=== PATIENT | male | born 1970 | race Hispanic/Latino ===

== ENCOUNTER 2021-08-02 20:34 | Emergency (ER) | payer BC ==
[2021-08-02] MEDS ORDERED: Boostrix 0.5 ML (Tdap) VIAL ONE (21:05)
== END 2021-08-02 21:26 | disposition home or self-care (01) ==
LOC: NAV ERS 20:34
DX: S61.412A Laceration without foreign body of left hand, initial encounter (principal); W26.0XXA Contact with knife, initial encounter; Z23 Encounter for immunization
CPT/HCPCS: 90471; 90715